=== PATIENT | male | born 1985 | race Caucasian/White ===

== ENCOUNTER 2023-01-02 13:46 | Emergency (ER) | payer OTHER ==
[~2023-01-02] VITALS: Wt 129.3 kg
== END 2023-01-02 15:35 | disposition home or self-care (01) ==
LOC: ED 13:46
DX: S61.411A Laceration without foreign body of right hand, initial encounter (principal); W45.8XXA Other foreign body or object entering through skin, initial encounter; Y93.89 Activity, other specified; Y92.89 Other specified places as the place of occurrence of the external cause; Y99.8 Other external cause status